=== PATIENT | male | born 1995 ===

== ENCOUNTER 2017-10-06 20:03 | Emergency (ER) | payer OTHER ==
--- NOTE | 2017-10-06 21:50 | RAD ---
Indication: Left knee injury. 4 views of left knee demonstrates no definite fracture or dislocation. No joint effusion is noted. No other bone or joint abnormalities identified. IMPRESSION: Unremarkable left knee.
[2017-10-06] MEDS ORDERED: Ibuprofen TAB* 600 MG PO ONE (22:26)
[2017-10-06 22:47] VITALS: BP 128/67
--- NOTE | 2017-10-07 09:09 | ED ---
Lower Extremity - HPI Summary HPI Summary: Patient presents to the ED with left posterior knee pain after sustaining an injury during training a few hours prior to arrival. He has been able to bear weight, but feels like he cannot walk. The extremity feels as it will give out on him. Denies any color or temperature changes to the knee. Denies numbness and tingling in the ipsilateral Leg. Denies any other injuries this date. Has no health problems, takes no medications. Patient is a student and lives alone. Denies smoking or drinking. He has never injured that knee before. The pain is rated a 2 out of 10, constant and aching only with palpation of the posterior knee. He feels he is unable to extend the knee completely but is able to flex without problem. - History of Current Complaint Chief Complaint: EDExtremityLower Stated Complaint: LT KNEE INJURY Time Seen by Provider: 10/06/17 20:33 Hx Obtained From: Patient Mechanism Of Injury: Other - Hyperextension Onset of Pain: Minutes Onset/Duration: Minutes Severity Initially: Moderate Severity Currently: Moderate Pain Intensity: 5 Pain Scale Used: 0-10 Numeric Timing: Constant Location: Is Discrete @ - Posterior left knee Associated Signs And Symptoms: Negative: Swelling, Redness, Bruising, Weakness, Dizziness, Syncope Aggravating Factor(s): Standing - Without pain, Ambulation Able to Bear Weight: Yes - Risk Factors Gout Risk Factors: Negative DVT Risk Factors: Negative Septic Arthritis Risk Factor: Negative - Allergies/Home Medications Allergies/Adverse Reactions: Allergies Allergy/AdvReac Type Severity Reaction Status Date / Time No Known Allergies Allergy Verified 10/06/17 20:21 PMH/Surg Hx/FS Hx/Imm Hx Previously Healthy: Yes - Immunization History Hx Pertussis Vaccination: No Immunizations Up to Date: Unable to Obtain/Confirm Infectious Disease History: No Infectious Disease History: Denies: Traveled Outside the [place] in Last 30 Days - Social History Occupation: Unemployed, Student Lives: With Family Alcohol Use: None Hx Substance Use: No Substance Use Type: Reports: None Hx Tobacco Use: No Smoking Status (MU): Never Smoked Tobacco Review of Systems Negative: Fever, Chills, Fatigue, Skin Diaphoresis Eyes: Negative Cardiovascular: Negative Respiratory: Negative Positive: no symptoms reported, see HPI Positive: Myalgia Skin: Negative Neurological: Negative All Other Systems Reviewed And Are Negative: Yes Physical Exam Triage Information Reviewed: Yes Vital Signs On Initial Exam: Initial Vitals Temp Pulse Resp BP Pulse Ox 98.9 F 91 16 147/47 95 10/06/17 20:17 10/06/17 20:17 10/06/17 20:17 10/06/17 20:17 10/06/17 20:17 Vital Signs Reviewed: Yes Appearance: Positive: Well-Appearing, Well-Nourished Skin: Positive: Warm, Skin Color Reflects Adequate Perfusion Head/Face: Positive: Normal Head/Face Inspection Eyes: Positive: EOMI, JARAD, Conjunctiva Clear Neck: Positive: Supple, No Lymphadenopathy Respiratory/Lung Sounds: Positive: Clear to Auscultation, Breath Sounds Present Cardiovascular: Positive: Normal, RRR, Pulses are Symmetrical in both Upper and Lower Extremities Musculoskeletal: Positive: Pain @ - Posterior left knee Neurological: Positive: Speech Normal Psychiatric: Positive: Affect/Mood Appropriate Diagnostics - Vital Signs Vital Signs Temp Pulse Resp BP Pulse Ox 10/06/17 22:44 98.5 F 85 16 128/67 97 10/06/17 20:17 98.9 F 91 16 147/47 95 - Laboratory Lab Statement: Any lab studies that have been ordered have been reviewed, and results considered in the medical decision making process. Lower Extremity Course/Dx - Course Course Of Treatment: During the course of treatment the patient is evaluated for knee pain. The mechanism of injury was a hyperextension while sport training this afternoon. He is concerned over a ligamentous injury. While this injury was not a direct contact injury, x-rays were obtained to assure no avulsion or other structural damage could be visualized. There is tenderness to palpation of the posterior knee but not to the anterior, medial, or lateral sides. There is no evidence of laxity on physical exam. No effusion is seen to the knee. Apprehension test negative, valgus and varus forces tests negative , Lockman and pivot shift negative. Anterior drawer negative. I discussed the possibility of a ligamentous injury, however muscle strain or tear is more likely given the mechanism of injury. Hamstring and quadriceps is without pain to suggest a tear. X-ray negative for any acute findings. Discussed with patient at length regarding ligamentous injuries versus muscle tears. Since patient is not able to comfortably ambulate on the extremity, he is given knee immobilizer and crutches and will follow-up with orthopedics for a further review. Patient was okay with discharge voices no concerns at this time. I have advised ice and ibuprofen. Referral is given. - Diagnoses Provider Diagnoses: Posterior left knee pain Discharge - Discharge Plan Condition: Stable Disposition: HOME Patient Education Materials: Knee Pain (ED), Knee Immobilizer (ED) Referrals: No Primary Care Phys,NOPCP [Primary Care Provider] - Additional Instructions: Ibuprofen 600mg three times daily for inflammation ice the knee 3-4 times daily for 20 minutes at a time Keep the knee immobilizer on while ambulating or bearing weight If you begin to feel better, you may begin to bear a small amount of weight Please follow up with ortho next week for further evaluation I have given you information on follow up If you develop any worsening symptoms, return to the ED
== END 2017-10-07 00:05 | disposition home or self-care (01) ==
LOC: ED 20:03
DX: M25.562 Pain in left knee (principal); X50.9XXA Other and unspecified overexertion or strenuous movements or postures, initial encounter; Y93.89 Activity, other specified; Y92.9 Unspecified place or not applicable
CPT/HCPCS: 99282; A9270-GY